=== PATIENT | female | born 1955 | race Caucasian/White ===

== ENCOUNTER 2017-07-07 08:21 | Emergency (ER) | payer MEDICAID ==
--- NOTE | 2017-07-07 08:59 | EDM.PDOC ---
ED HPI GENERAL MEDICAL PROBLEM - General Chief Complaint: Chest Pain Stated Complaint: CHEST PAIN Time Seen by Provider: 07/07/17 08:33 Source of Information: Reports: Patient History Limitations: Reports: No Limitations - History of Present Illness INITIAL COMMENTS - FREE TEXT/NARRATIVE: 62 y/o F with hx rheumatic fever as a child and a heart murmur which she states resolved, otherwise healthy, presents with chest pain. Started two days ago while at rest. No provoking factor. States she has sharp pains in left chest area. Come and go. Last about 1 minute then resolve spontaneously. Today she had some pain radiating to her left arm. She has no pain currently. No SOB. No cough/recent illness. No nausea or abdominal pain. No recent illness or injury. Has chronic mild lower extremity swelling,no recent change. No recent travel/ immobilization. Denies history of similar symptoms. - Related Data Allergies Allergy/AdvReac Type Severity Reaction Status Date / Time No Known Allergies Allergy Verified 07/07/17 08:35 Home Meds: Home Meds Hydrochlorothiazide 12.5 mg PO DAILY 07/07/17 [History] Methylphenidate HCl [Ritalin] 5 mg PO TID 07/07/17 [History] Multivitamin [Multivitamins] 1 tab PO DAILY 07/07/17 [History] Omeprazole 20 mg PO DAILY 07/07/17 [History] Past Medical History HEENT History: Reports: Cataract, Impaired Vision Other HEENT History: wears eyeglasses. Cardiovascular History: Reports: Heart Murmur, Other (See Below) Other Cardiovascular History: scarlet fever in childhood. 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: Musculoskeletal History: Reports: Back Pain, Chronic Neurological History: Reports: Concussion Psychiatric History: Reports: Depression Other Psychiatric History: years ago Hematologic History: Reports: Iron Deficiency - Infectious Disease History Infectious Disease History: Reports: Chicken Pox, Scarlet Fever - Past Surgical History HEENT Surgical History: Reports: Tonsillectomy Social & Family History - Tobacco Use Smoking Status *Q: Former Smoker Used Tobacco, but Quit: No - Caffeine Use Caffeine Use: Reports: Coffee - Recreational Drug Use Recreational Drug Use: No ED ROS GENERAL - Review of Systems Review Of Systems: See Below Constitutional: Denies: Fever HEENT: Reports: No Symptoms Respiratory: Denies: Shortness of Breath, Cough Cardiovascular: Reports: Chest Pain Endocrine: Reports: No Symptoms GI/Abdominal: Denies: Abdominal Pain : Reports: No Symptoms Musculoskeletal: Denies: Neck Pain Skin: Reports: No Symptoms Neurological: Reports: No Symptoms Psychiatric: Reports: No Symptoms ED EXAM, GENERAL - Physical Exam Exam: See Below Exam Limited By: No Limitations General Appearance: Alert, WD/WN, No Apparent Distress Eye Exam: Bilateral Eye: Normal Inspection Ears: Normal External Exam Nose: Normal Inspection Throat/Mouth: Normal Inspection, Normal Oropharynx, Normal Voice, No Airway Compromise Head: Atraumatic, Normocephalic Neck: Normal Inspection, Supple, Non-Tender Respiratory/Chest: No Respiratory Distress, Lungs Clear, Normal Breath Sounds, Chest Non-Tender, Other (mild left chest wall TTP, no deformity/crepitus/skin abnormality) Cardiovascular: Normal Peripheral Pulses, Regular Rate, Rhythm, No Murmur GI/Abdominal: Soft, Non-Tender, No Distention. No: Rebound Back Exam: Normal Inspection Extremities: Normal Inspection, No Pedal Edema Neurological: Alert, Oriented, Normal Cognition, No Motor/Sensory Deficits Psychiatric: Normal Affect, Normal Mood Skin Exam: Warm, Dry, Intact, Normal Color, No Rash Course - Vital Signs Last Recorded V/S: Last Vital Signs Temp 36.3 C 07/07/17 08:25 Pulse 78 07/07/17 08:25 Resp 18 07/07/17 08:25 BP 119/79 07/07/17 08:25 Pulse Ox 97 07/07/17 08:25 - Orders/Labs/Meds Orders: Active Orders 24 hr Category Date Time Status EKG 12 Lead [EKG Documentation Completion] [RC] STAT Care 07/07/17 09:03 Active Chest 2V [CR] Stat Exams 07/07/17 08:58 Taken Labs: Laboratory Tests 07/07/17 07/07/17 07/07/17 Range/Units 08:30 08:30 08:30 WBC 4.78 (3.98-10.04) K/mm3 RBC 5.10 (3.98-5.22) M/mm3 Hgb 14.4 (11.2-15.7) gm/L Hct 44.6 (34.1-44.9) % MCV 87.5 (79.4-94.8) fl MCH 28.2 (25.6-32.2) pg MCHC 32.3 (32.2-35.5) g/dl RDW Std Deviation 41.1 (36.4-46.3) fL Plt Count 362 (182-369) K/mm3 MPV 8.4 L (9.4-12.3) fl Neut % (Auto) 32.3 L (34.0-71.1) % Lymph % (Auto) 50.8 (19.3-51.7) % [place] % (Auto) 7.7 (4.7-12.5) % Eos % (Auto) 8.6 H (0.7-5.8) Baso % (Auto) 0.4 (0.1-1.2) % Neut # (Auto) 1.54 L (1.56-6.13) K/mm3 Lymph # (Auto) 2.43 (1.18-3.74) K/mm3 [place] # (Auto) 0.37 H (0.24-0.36) K/mm3 Eos # (Auto) 0.41 H (0.04-0.36) K/mm3 Baso # (Auto) 0.02 (0.01-0.08) K/mm3 D-Dimer, Quantitative 0.35 (0.19-0.50) mg/L Sodium 143 (136-145) mEq/L Potassium 3.9 (3.5-5.1) mEq/L Chloride 107 (98-107) mEq/L Carbon Dioxide 28 (21-32) mEq/L Anion Gap 11.9 (5-15) BUN 10 (7-18) mg/dL Creatinine 0.9 (0.55-1.02) mg/dL Est Cr Clr Drug Dosing 58.32 mL/min Estimated GFR (MDRD) > 60 (>60) mL/min BUN/Creatinine Ratio 11.1 L (14-18) Glucose 88 (80-115) mg/dL Calcium 9.0 (8.5-10.1) mg/dL Total Bilirubin 0.2 (0.2-1.0) mg/dL AST 8 L (15-37) U/L ALT 21 (14-59) U/L Alkaline Phosphatase 73 (46-116) U/L Troponin I < 0.017 (0.00-0.056) ng/mL Total Protein 7.3 (6.4-8.2) g/dl Albumin 3.8 (3.4-5.0) g/dl Globulin 3.5 gm/dL Albumin/Globulin Ratio 1.1 (1-2) - Re-Assessments/Exams Free Text/Narrative Re-Assessment/Exam: 07/07/17 13:31 EKG shows NSR, normal intervals, no ST/T abnormality. Troponin and d-dimer neg. Given 2 days of atypical symptoms, will not repeat troponin. Labs otherwise unremarkable. CXR shows normal cardiac silhouette, no ptx, no acute abnormality. She felt well and had normal vital signs throughout ED stay. No definite explanation for symptoms. Encouraged her to f/u with PCP and also discussed ED return precautions. Departure - Departure Time of Disposition: 11:34 Disposition: Home, Self-Care 01 Clinical Impression: Chest pain Qualifiers: Chest pain type: other chest pain Qualified Code(s): R07.89 - Other chest pain Instructions: Nonspecific Chest Pain, [id number] Referrals: Violeta Dickey ADOPTION AGENT [Primary Care Provider] - Forms: ED Department Discharge Additional Instructions: 1. Follow up with your primary care provider as soon as possible for further care 2. Return to the ED for a recheck if you have any difficulty breathing or worsening chest pain or other concerning symptoms - My Orders Last 24 Hours: My Active Orders 07/07/17 08:58 Chest 2V [CR] Stat 07/07/17 09:03 EKG 12 Lead [EKG Documentation Completion] [RC] STAT - Assessment/Plan Last 24 Hours: My Active Orders 07/07/17 08:58 Chest 2V [CR] Stat 07/07/17 09:03 EKG 12 Lead [EKG Documentation Completion] [RC] STAT
--- NOTE | 2017-07-08 09:37 | CR ---
Chest: Two views of the chest were obtained. Comparison: No prior chest x-ray. Heart size and mediastinum are normal. Lungs are clear with no acute parenchymal change. Diaphragms slightly flattened suggesting emphysematous change. Slight anterior wedging seen within the mid to upper thoracic spine which is likely old. Impression: 1. Possible emphysematous change. 2. Nothing acute is seen on two-view chest x-ray. Diagnostic code #2
== END 2017-07-07 11:40 | disposition home or self-care (01) ==
LOC: JD.ED 08:21
DX: R07.89 Other chest pain (principal); K21.9 Gastro-esophageal reflux disease without esophagitis; Z87.891 Personal history of nicotine dependence; Z79.899 Other long term (current) drug therapy; Z87.440 Personal history of urinary (tract) infections
CPT/HCPCS: 36415; 71046; 71046-26; 80053; 84484; 85025; 85379; 93005; 93010; 99284-25; 99285-25

== ENCOUNTER 2017-07-25 16:30 | Emergency (ER) | payer MEDICAID ==
[2017-07-25] MEDS ORDERED: Doxycycline 100 MG Cap PO ONE (17:44)
[2017-07-25] MEDS ORDERED: Doxycycline 100 MG Cap ONE (17:46)
--- NOTE | 2017-07-25 17:54 | EDM.PDOC ---
ED HPI GENERAL MEDICAL PROBLEM - General Chief Complaint: Bite:Animal, Insect Stated Complaint: POSS ALLERGIC REACTION TO BUG BITE Time Seen by Provider: 07/25/17 17:21 Source of Information: Reports: Patient History Limitations: Reports: No Limitations - History of Present Illness INITIAL COMMENTS - FREE TEXT/NARRATIVE: Patient is a 62-year-old female presents ED complaining of small bites to her left ear on her face and around the base of her hairline posteriorly. Patient states this occurred last night. She's been itching the affected areas andincrease in swelling to the sites as of this morning. There is pain associated with this. Draining noted to the left ear. Some mild swelling present. She has no history of MRSA. Unclear what kind of bug bite this was. Patient denies any fever, chills, nausea vomiting, or any additional complaints. face Pain Score (Numeric/FACES): 4 - Related Data Allergies Allergy/AdvReac Type Severity Reaction Status Date / Time No Known Allergies Allergy Verified 07/07/17 08:35 Home Meds: Home Meds Hydrochlorothiazide 12.5 mg PO DAILY 07/07/17 [History] Methylphenidate HCl [Ritalin] 5 mg PO TID 07/07/17 [History] Multivitamin [Multivitamins] 1 tab PO DAILY 07/07/17 [History] Omeprazole 20 mg PO DAILY 07/07/17 [History] Doxycycline [Vibramycin] 100 mg PO BID #7 cap 07/25/17 [Rx] Past Medical History HEENT History: Reports: Cataract, Impaired Vision Other HEENT History: wears eyeglasses. Cardiovascular History: Reports: Heart Murmur, Other (See Below) Other Cardiovascular History: scarlet fever in childhood. 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: Musculoskeletal History: Reports: Back Pain, Chronic Neurological History: Reports: Concussion Psychiatric History: Reports: Depression Other Psychiatric History: years ago Hematologic History: Reports: Iron Deficiency - Infectious Disease History Infectious Disease History: Reports: Chicken Pox, Scarlet Fever - Past Surgical History HEENT Surgical History: Reports: Tonsillectomy Social & Family History - Family History Family Medical History: Noncontributory - Tobacco Use Smoking Status *Q: Never Smoker - Caffeine Use Caffeine Use: Reports: Coffee - Recreational Drug Use Recreational Drug Use: No ED ROS GENERAL - Review of Systems Review Of Systems: ROS reveals no pertinent complaints other than HPI. ED EXAM, ANIMAL BITE - Physical Exam Exam: See Below Exam Limited By: No Limitations General Appearance: Alert, WD/WN, No Apparent Distress Ears: Hearing Grossly Normal. No: Normal External Exam (But by noted to the outer border of the left ear with some slight drainage and swelling present. Mild erythema noted.) Nose: Normal Inspection Throat/Mouth: Normal Voice, No Airway Compromise Head: Other (Few small bite magallanes to the base of the scalp along the hairline) Neck: Normal Inspection, Supple (.), Non-Tender, Full Range of Motion Respiratory/Chest: No Respiratory Distress, No Accessory Muscle Use Cardiovascular: Normal Peripheral Pulses, Regular Rate, Rhythm Peripheral Pulses: 4+: Radial (L) Extremities: Normal Inspection Neurological: Alert, Oriented, CN II-XII Intact, Normal Cognition, No Motor/ Sensory Deficits Psychiatric: Normal Affect, Normal Mood Skin Exam: Normal Color, Warm/Dry Front/Back Body Diagram: 1 - Few small 1 Center by 1 cm erythematous raised lesions to the face. No pus present. Course - Vital Signs Last Recorded V/S: Last Vital Signs Temp 98.0 F 07/25/17 16:37 Pulse 85 07/25/17 16:37 Resp 16 07/25/17 16:37 BP 101/86 07/25/17 16:37 Pulse Ox 96 07/25/17 16:37 - Orders/Labs/Meds Meds: Medications Discontinued Medications Generic Name Dose Route Start Last Admin Trade Name Freq PRN Reason Stop Dose Admin Doxycycline Hyclate 100 mg 07/25/17 17:44 07/25/17 17:48 Vibramycin PO 07/25/17 17:45 100 mg ONETIME ONE Administration - Re-Assessments/Exams Free Text/Narrative Re-Assessment/Exam: Patient has draining infection to the left ear. She has multiple small lesions to the face and base of the neck. I ordered doxycycline 100 mg by mouth. Discharge instructions as documented. Departure - Departure Time of Disposition: 17:52 Disposition: Home, Self-Care 01 Condition: Good Clinical Impression: Cellulitis Qualifiers: Site of cellulitis: face Qualified Code(s): L03.211 - Cellulitis of face Bug bite of face with infection Qualifiers: Encounter type: initial encounter Qualified Code(s): S00.86XA - Insect bite ( nonvenomous) of other part of head, initial encounter - Discharge Information Prescriptions: Doxycycline [Vibramycin] 100 mg PO BID #7 cap Instructions: Cellulitis, Adult, [id number] Referrals: Violeta Dickey, TAX COLLECTION COORDINATOR [Primary Care Provider] - Forms: ED Department Discharge Additional Instructions: Take the full course of doxycycline as prescribed. Utilize Tylenol and ibuprofen for pain. May take Pepcid 40 mg every day for any itching. Cleanse site twice daily with soap and water Pat dry, reapply Triple Antibiotic ointment , and dressing. Keep covered if draining. Return to the ED if you develop any new or worsening symptoms.
== END 2017-07-25 18:05 | disposition home or self-care (01) ==
LOC: JD.ED 16:30
DX: S00.86XA Insect bite (nonvenomous) of other part of head, initial encounter (principal); L03.211 Cellulitis of face; Z79.899 Other long term (current) drug therapy; W57.XXXA Bitten or stung by nonvenomous insect and other nonvenomous arthropods, initial encounter
CPT/HCPCS: 99282; A9270